=== PATIENT | female | born 1995 | race Caucasian/White ===

== ENCOUNTER 2024-10-03 12:37 | Emergency (ER) | payer BC, SELFPAY ==
--- NOTE | ~2024-10-03 | XR_ITS ---
EXAMINATION: XR chest 2V DATE: 10/03/2024 13:42 INDICATION: Cough and shortness of breath TECHNIQUE: PA and lateral views of the chest were obtained. COMPARISON: None FINDINGS: The lungs are clear with no focal airspace opacities, pulmonary edema, pleural effusion or pneumothor ax. The cardiomediastinal silhouette is normal. Mild thoracic spondylosis. IMPRESSION: 1. No acute cardiopulmonary disease. Reviewed, dictated and finalized at location A. [facility]
[2024-10-03 12:54] VITALS: BP 117/62; PULSE 84; RESP 18; TEMP 36.5; O2SAT 98
[2024-10-03 13:11] LABS: EDCOVIDSCREEN Negative (Negative); EDINFLUASCREEN Negative (Negative); EDINFLUBSCREEN Negative (Negative)
--- NOTE | 2024-10-03 13:20 | ED.URI ---
HPI - URI/Sore Throat General Chief Complaint: Upper Respiratory Infection Stated Complaint: coughing Time Seen by Provider: 10/03/24 13:20 Source: patient Mode of arrival: ambulatory Limitations: no limitations History of Present Illness HPI Narrative: 29-year-old female presented for complaint of cough and chest congestion following what she thinks was influenza last week. She states she has coughing over 1 week, but the other flu like symptoms have resolved. Endorses mild shortness of breath with exertion. Cough is productive of yellow sputum. Taking [id number] cough medicines for symptoms. Related Data Allergies Allergy/AdvReac Type Severity Reaction Status Date / Time No Known Allergies Allergy Verified 10/03/24 13:08 Review of Systems Review of Systems: CONSTITUTIONAL: Denies body aches, fever, chills, or sweats. EYES: Denies visual changes, redness, or discharge. ENT: Denies rhinorrhea, congestion, sore throat, or otalgia. CARDIOVASCULAR: Denies chest pain, palpitations, or edema. RESPIRATORY: Reports cough, sob, denies wheezing. GASTROINTESTINAL: Denies abdominal pain, nausea, vomiting, or diarrhea. MUSCULOSKELETAL: Denies back pain, joint pain, or myalgia. NEUROLOGIC: Denies headache, numbness, tingling, or weakness. PSYCH: Denies depression or anxiety. All systems reviewed & are unremarkable except as noted in HPI and below PMFSH Comments At time of signature, I have reviewed and agree with nursing past medical, surgical, social and family history unless otherwise noted. Please see nursing chart for further information. There is no relevant family history pertinent to the presenting complaint Exam Narrative: GENERAL: Well-appearing, in no acute distress. EYES: EOMI. No redness or drainage. Conjunctivae normal. ENT: Mucous membranes pink and moist. No rhinorrhea. TMs normal bilaterally. Throat normal. Uvula midline. NECK: Normal AROM. Supple. CHEST: No respiratory distress. Lungs clear to all quiñonez. Frequent harsh tipple tender cough. HEART: Regular rate and rhythm. No murmur appreciated. ABDOMEN: Soft, nontender, nondistended, normal active bowel sounds. SKIN: Warm, dry, no rash. Capillary refill normal. Normal skin turgor. NEURO: Alert and oriented x3. Gait steady. PSYCH: Normal affect. Course Course Emergency Course: Patient is aware of diagnosis, understands and agrees to treatment plan. Anticipatory guidance given. Patient agrees to follow-up as directed and is aware of reasons to seek care at the emergency department. Portions of this record may have been created with voice recognition software Level of Care: Express Care Visit Vital Signs Vital signs: Vital Signs Temperature 97.7 F 10/03/24 12:54 Pulse Rate 84 10/03/24 12:54 Respiratory Rate 18 10/03/24 12:54 Blood Pressure 117/62 10/03/24 12:54 Pulse Oximetry 98 10/03/24 12:54 Oxygen Delivery Room Air 10/03/24 12:54 Temperature 97.7 F 10/03/24 12:54 Pulse Rate 84 10/03/24 12:54 Respiratory Rate 18 10/03/24 12:54 Blood Pressure 117/62 10/03/24 12:54 Pulse Oximetry 98 10/03/24 12:54 Oxygen Delivery Room Air 10/03/24 12:54 MDM - URI/Sore Throat MDM Narrative Medical decision making narrative: Negative flu and COVID. Neg CXR. Discussed physical exam findings. Advised supportive measures and signs/symptoms to go to the ER. Pt is appropriate for outpt treatment and f/u. Differential Diagnosis Differential diagnosis: Likely upper respiratory infection, sinusitis, viral infection, bronchitis, influenza and pharyngitis Lab Data Labs: Lab Results 10/03/24 Range/Units 12:53 POC Influenza A Ag Negative (Negative) POC Influenza B Ag Negative (Negative) POC SARS CoV-2 Ag Negative (Negative) Imaging Data Radiologist's impression: Patient: Heidi Galvan : 1995 MR#: [id number] Age: 29 Acct:[id number] Loc: [facility] ADM Date: 10/03/24Attending Dr: Ordering Physician: Mirna Locke APRN Date of Service: 10/03/24 Procedure(s): XR chest 2V Accession Number(s): [id number] cc: Jeanie, Jo Deleon MD; Mirna Locke APRN~ EXAMINATION: XR chest 2V DATE: 10/03/2024 13:42 INDICATION: Cough and shortness of breath TECHNIQUE: PA and lateral views of the chest were obtained. COMPARISON: None FINDINGS: The lungs are clear with no focal airspace opacities, pulmonary edema, pleural effusion or pneumothorax. The cardiomediastinal silhouette is normal. Mild thoracic spondylosis. IMPRESSION: 1. No acute cardiopulmonary disease. Discharge Plan Discharge Clinical Impression: Bronchitis Patient Disposition: Home, Self-Care Condition: Stable Instructions: Antibiotic Form, Acute Bronchitis (ED) Additional Instructions: Flu and COVID negative. Acute bronchitis can be contagious because it is usually caused by infection with a virus or bacteria. It is usually for a few days but you can be contagious for up to one week. Avoid crowds until you do not have a fever and symptoms are improved Take medication as directed Recommendations: Flonase spray and Zyrtec (or Claritin/Pau) over the counter Cough syrup may cause drowsiness; avoid driving or take it at night time. Tylenol 1000mg every 8 hours as needed for pain Symptomatic treatment includes: rest, fluids, and increase humidity of the air at home. Follow up with your primary care provider as needed in 1 week Go to the ER for worsening symptoms or concerns Patient Language: Taiwanese Prescriptions: New benzonatate 200 mg capsule 200 mg PO TID PRN (Reason: cough) Qty: 20 0RF prednisone 50 mg tablet 50 mg PO DAILY Qty: 5 0RF Follow-up/Referrals: Jeanie,Jo Deleon MD [Primary Care Provider] -
--- OUTSIDE RECORDS SUMMARY | 2024-10-03 13:35 | XMS_ITS | Clinical Summary ---
Author Organization [facility] Address [address] [place] [address] Care Team Providers Care Principal Biostatistician Name Role Phone Jo Lagos MD Primary Care Provider [phone] Source Comments [facility],non-owned Affiliates and Associated Physician Practices is amultiple site organization consisting of ambulatory clinics and hospital sitesin [place], [place], [place] and [place]. This disclosure is being madepursuant to the Care Everywhere program and may not contain all information available regarding this patient. Last updated 18.[facility] Social History Tobacco Use Types Packs/Day Years Used Date Smoking Tobacco: Never Assessed Sex and Gender Information Value Date Recorded Sex Assigned at Not on file Gender Identity Not on file Sexual Orientation Not on file Plan of Treatment Health Maintenance Due Date Last Done Comments PAP SMEAR 1995 HIV SCREENING 2009 HEPATITIS C SCREENING 07/08/2012 DTAP/TDAP/TD VACCINES (1 - Tdap) 2013 HEPATITIS B VACCINE (1 of 3 - 19+ 3-dose series) 2013 COVID-19 VACCINE ( - 2023-2 5 season) 2024 INFLUENZA VACCINE (#1) 2024 DEPRESSION SCREENING 08/29/2024 ZOSTER VACCINE (1 of 2) 2044 HIB VACCINE Aged Out No longer eligi ble based on patient's age to complete this topic HPV VACCINE Aged Out No longer eligi ble based on patient's age to complete this topic MENINGOCOCCAL (Group B) VACCINE Aged Out No longer eligible based on patient's age to complete this topic MENINGOCOCCAL VACCINE Aged Out No faiza melissa eligible based on patient's age to complete this topic PNEUMOCOCCAL VACCINE Aged Out No long er eligible based on patient's age to complete this topic Care Teams Principal Biostatistician Relationship Specialty Start Date End Date Jo Lagos MD PCP - General Family Medicine 11/14/17
--- OUTSIDE RECORDS SUMMARY | 2024-10-03 13:35 | XMS_ITS | Referral Summary ---
Author Organization [facility] Address [address] [place] [address] Care Team Providers Care Phys Assistant Name Role Phone Jo Lagos MD Primary Care Provider [phone] Source Comments [facility],non-owned Affiliates and Associated Physician Practices is amultiple site organization consisting of ambulatory clinics and hospital sitesin [place], [place], [place]. This disclosure is being madepursuant to the Care Everywhere program and may not contain all information available regarding this patient. Last updated 18.[facility] Social History Tobacco Use Types Packs/Day Years Used Date Smoking Tobacco: Never Assessed Sex and Gender Information Value Date Recorded Sex Assigned at Not on file Gender Identity Not on file Sexual Orientation Not on file Plan of Treatment Not on file Care Teams Phys Assistant Relationship Specialty Start Date End Date Jo Lagos MD PCP - General Family Medicine 11/14/17
--- OUTSIDE RECORDS SUMMARY | 2024-10-03 13:35 | XMS_ITS | Data Portability ---
Author Organization [facility] Address [address] [place] [address] [place] [address] Assessment Encounter Date Assessment Date Assessment LastModified by Organization Details LastModified Time 06/18/2024 06/18/2024 Annual gynecological exam performed. Patient will come back in a year unless there are new symptoms. 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 Procedures None recorded. Surgeries None recorded. Imaging None recorded. Medication Orders None recorded. Patient TargetsNo targets recorded. Patient InstructionsNo instructions recorded. Reason for Referral None Reported. Results Created Date Observation Date Name Description Value Unit Range Abnormal Flag Note LastModifiedBy Organization Detail LastModifiedTime 06/18/20 24 06/18/2024 IMAGE GUIDE D PAP, REFLE X HPV IF ASCUS ONLY image guided Pap, reflex HPV ASCUS only SEE RESULT S BELOW abnormal CASE REPOR T: Cytol ogy Gynec ologi jay Repor t Case: [id number] Autho nicky oneil Provi donald: Clara jaimes, Lisa , ANP, ELECTRONICS REPAIR TECHNICIAN Colle cted: 06/18 1319 Order ing Locat ion: [place] Patho logsamson Recei christa: 06/19 0953 First Scree n: Valerie Doe Patho logis t: Zheng Worthington MD Speci men: Cyndy rodríguez Pap - Image d, Cervi x STATE MENT OF ADEQU ACY: Satis facto ry for evalu ation Trans forma tion zone compo nent prese nt ----- ----- ----- ----- ----- ----- ----- ----- ----- ----- ----- ----- ----- ----- ----- ----- ----- ---- FINAL DIAGN OSIS: Epith elial Cell Abnor malit y, Squam ous Cell: Low Grade Squam ous Intra epith elial Lesio n (LSIL ). Jessy alegria by Zheng Worthington MD on 06/25 at 1:58 PM ----- ----- ----- ----- ----- ----- ----- ----- ----- ----- ----- ----- ----- ----- ----- ----- ----- ---- COMME NT: This speci men was revie wed by a Cytot echno logis t and/o r Patho logis t (as indic ated in this repor t) after evalu ation using the Thinp rep Imagi ng Syste m. CLINI JAY INFOR MATIO N: Menst rual Statu s: LMP (if appli cable ): Clini jay Histo ry/Pr eviou s Pap: Type of Neopl zulay (if appli cable ): Signi fican t Clini jay Findi ngs: Other Histo ry: Hormo mane (if appli cable ): BRANT ADAMS FOLLO W-UP: Follo w up as warra nted, based on curre nt guide lines and indiv idual patie nt consi derat ions. Not Available [facility] (Lab) [address], [place], [address], 06/25/2024 15:01:35 06/18/20 24 06/18/2024 TRICH OMONA S VAGIN IVONE (RRNA ) trichomonas vaginalis ribosomal RNA (rrna) Negati ve negati ve Not Available [facility] (Lab) [address], [place], [address], 06/25/2024 15:01:35 06/18/20 24 06/18/2024 CT/GC ([place]) , THINP REP VIAL chlamydia trachomatis, PCR Negati ve negati ve Not Available [facility] (Lab) [address], [place], [address], 06/25/2024 15:01:36 06/18/20 24 06/18/2024 CT/GC ([place]) , THINP REP VIAL neisseria gonorrhoeae, PCR Negati ve negati ve Not Available [facility] (Lab) [address], [place], [address], 06/25/2024 15:01:36 07/16/20 24 07/16/2024 SURGI JAY PATHO LOGY surgical pathology SEE RESULT S BELOW CASE REPOR T: Surgi jay Patho logy Repor t Case: [id number] Autho nicky oneil Provi donald: Yordan Orosco MD Colle cted: 07/16 1702 Order ing Locat ion: [place] Patho logy Recei christa: 07/17 0522 Patho logis t: Asha Perry MD Speci men: Endoc ervix , ECC ----- ----- ----- ----- ----- ----- ----- ----- ----- ----- ----- ----- ----- ----- ----- ----- ----- ---- FINAL DIAGN OSIS: Endoc ervix , curet tage: -Frag ments of endoc ervic al tissu e, negat rafaela for dyspl zulay. Elect jasbir alegria by Asha Perry MD on 07/17 at 2:31 PM ----- ----- ----- ----- ----- ----- ----- ----- ----- ----- ----- ----- ----- ----- ----- ----- ----- ---- COMME NT: The previ ous Pap smear ([id number]) resul t is noted . CLINI JAY INFOR MATIO N: Squam ous intra epith elial lesio n MICRO SCOPI C DESCR IPTIO N: A micro scopi c exami natio n was perfo rmed. GROSS DESCR IPTIO N: A. Endoc ervix . The speci men is label ed with the patie nt's name, demog raphi cs and ECC . Recei christa in forma caitlyn is a 2.0 x 2.0 x 0.[address] of mucus and dark red tissu e. The entir e speci men is submi tted in one casse tte. Gross ed by Elsie roldan Not Available [facility] (Lab) [address], [place], [address], 07/17/2024 15:36:07 07/16/20 24 07/16/2024 pregn salas test, urine HCG negati ve Not Available [place] [address], [place], [address], 07/16/2024 14:39:07 Result Notes None recorded. 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) w/o abn findings;P treasuretice ID: 0001 Not Available [facility] 0 17:28:[address] Concept Active 2016 Encntr for general adult medical exam w/o abnormal findings;R ecorded Elsewhere: No Locatio n: [facility] rce: EHR Chroni c: N Practice ID: 0001 Billa ble Time: 02:30:00 PM Not Available [facility] 0 17:28:41 test negative 217411083 Active 2016 Encounter for test, result negative;R ecorded Elsewhere: No Locatio n: [facility] rce: EHR Chroni c: N Practice ID: 0001 Billa ble Time: 11:00:00 AM Not Available [facility] 0 17:28:41 Finding of regularit y of menstrual cycle Active 2016 Irregular bleeding;R ecorded Elsewhere: No Locatio n: [facility] rce: EHR Chroni c: N Practice ID: 0001 Billa ble Time: 11:00:00 AM Not Available [facility] 0 17:28:41 Contracep tive sheath status 926677394 Active 2016 Encounter for initial prescripti on of other contracept maribel;Recor ded Elsewhere: No Locatio n: [facility] rce: EHR Chroni c: N Practice ID: 0001 Billa ble Time: 02:30:00 PM Not Available [facility] 0 17:28:41 Problem Notes None recorded. Procedures Surgical History Date Name Laterality Status Provider Name and Address Organization Details Recorded Time 07/16/20 24 Colposcopy completed Mian Orosco MD [address] [place], [address], [place] [facility] 07/16/2024 15:02:47 06/18/20 24 Date of Last Pap Smear completed Teresa Gurrola [facility] 07/16/2024 14:34:01 08/29/19 20 Date of Last Colonoscopy completed [facility] 06/18/2024 11:31:26 08/29/19 12 Ankle arthroscopy/doris bea completed [facility] 06/18/2024 11:35:42 Imaging Results None recorded. Procedure Notes None recorded. Medical Equipment None Reported. Allergies No known drug allergies Medications Name Sig Start Date Stop Date Status Note LastModified by Organization Details LastModified Time Adderall 15 mg tablet take 1 tablet by oral route every day before breakfas t 06/18 completed [facility] ed Elsewher e: Yes Loca tion: [facility] odify By: saurav Hunter r DateTime : 08/16/20 17 02:30:00 PM Not Available Not Available Not Available trazodone 50 mg tablet TAKE 1 TABLET BY MOUTH EVERY DAY AT BEDTIME NEEDED active Not Available Not Available No t Available ondansetr on HCl 4 mg tablet 1 TABLET(S ) , ORAL ROUTE, EVERY 8 HOURS NEEDED FOR NAUSEA 06/18 completed Not Available Not Available Not Available Nexium 40 mg capsule,d elayed release take 1 capsule by oral route every day 06/18 completed [facility] ed Elsewher e: Yes Loca tion: [facility] odify By: saurav Eppste r DateTime : 08/16/20 17 02:30:00 PM Not Available Not Available Not Available spironola ctone 25 mg tablet take 1 tablet by oral route every day 01/12 completed [facility] ed Elsewher e: Yes Loca tion: [facility] odify By: vicenta Mccabeou nter DateTime : 12/03/19 16 01:00:00 PM Not Available Not Available Not Available Vitamin B-12 50 mcg tablet 06/18 completed Prescrib ed Elsewher e: Yes Loca tion: [facility] odify By: saurav Hunter r DateTime : 08/16/20 17 02:30:00 PM Not Available Not Available Not Available Metrogel Vaginal 0.75 % (37.5 mg/5 gram) insert 1 applicat orful by vaginal route every day at bedtime 01/12 completed Prescrib ed Elsewher e: No Locat ion: [facility] odify By: vicenta Harmon nter DateTime : 12/10/19 16 03:58:46 PM Not Available Not Available Not Available lorazepam 0.5 mg tablet TAKE 1 TABLET BY MOUTH AT BEDTIME NEEDED FOR INSOMNIA DIAGNOSI S G47.00 2023 active Not Available Not Available Not Avai lable methylphe nidate ER 18 mg tablet,ex tended release 24 hr TAKE 1 TABLET BY MOUTH EVERY DAY 06/18 completed Not Available Not Available Not Available drospiren one 3 mg-ethiny l estradiol 0.03 mg tablet TAKE 1 TABLET BY MOUTH EVERY DAY 06/18 completed Not Available Not Available Not Available Vitamin B-2 25 mg tablet 06/18 completed Prescrib ed Elsewher e: Yes Loca tion: [facility] odify By: saurav Hunter r DateTime : 08/16/20 17 02:30:00 PM Not Available Not Available Not Available nitrofura ntoin monohydra te/macroc rystals 100 mg capsule TAKE 1 CAPSULE BY MOUTH TWICE A DAY FOR 7 DAYS 06/18 completed Not Available Not Available Not Available Loryna (28) 3 mg-0.02 mg tablet take 1 tablet by oral route every day 06/18 completed Prescrib ed Elsewher e: Yes Loca tion: [facility] odify By: matt Hunter r DateTime : 12/03/19 16 01:00:00 PM Not Available Not Available Not Available Trokendi XR 25 mg capsule,e xtended release take 1 capsule by oral route every day 06/18 completed Prescrib ed Elsewher e: Yes Loca tion: Jey regulo [facility] M odify By: saurav davila DateTime : 08/16/20 02:30:00 PM Not Available Not Available Not Available Vitals Date Recorded Body height Body mass index (BMI) Body weight Systolic blood pressure Diastolic blood pressure Provider Name and Address Organization Details Last Updated DateTime 06/18/2024 170.18 cm 37.4 kg/m2 858151.1 4 g 114 mm[Hg] 76 mm[Hg] [facility] 11:28:04 Date Recorded Body height Body mass index (BMI) Body weight Systolic blood pressure Diastolic blood pressure Provider Name and Address Organization Details Last Updated DateTime 07/16/2024 170.18 cm 37 kg/m2 717529.8 g 118 mm[Hg] 76 mm[Hg] Teresa Galileo [facility] 14:33:50 Social History Question Answer Notes LastModified by Organizat ion Details LastModified Time Tobacco Smoking Status Never Smoker [facility] 06/18/2024 11:33:28 Do You Have An Advance Directive? No [email or web address] Information n ot available 06/18/2024 What Is Your Level Of Alcohol Consumption? Occasional [email or web address] Information not available 06/18/2024 Are You Blind Or Do You Have Difficulty Seeing? No Information n ot available 06/18/2024 What Is Your Level Of Caffeine Consumption? Occasional [email or web address] Information not available 06/18/2024 In The 14 Days Before Symptom Onset, Have You Had Close Contact With A Laboratory-confirm ed COVID-19 While That Case Was Ill? No [email or web address] Information n ot available 06/18/2024 In The 14 Days Before Symptom Onset, Have You Had Close Contact With A Person Who Is Under Investigation For COVID-19 While That Person Was Ill? No [email or web address] Information not available 06/18/2024 Have You Been To An Area Known To Be High Risk For COVID-19? No [email or web address] Information not available 06/18/2024 Are You Currently Employed? Yes [email or web address] Information not available 06/18/2024 Are You Deaf Or Do You Have Serious Difficulty Hearing? No [email or web address] Information not available 06/18/2024 What Type Of Diet Are You Following? REGULAR [email or web address] Information n ot available 06/18/2024 What Is The Highest Grade Or Level Of School You Have Completed Or The Highest Degree You Have Received? [id number] [email or web address] Information not available 06/18/2024 What Is Your Occupation? [place] [email or web address] Information not available 06/18/2024 Are There Any Guns Present In Your Home? No [email or web address] Information not available 06/18/2024 Do You Use Your Seat Belt Or Car Seat Routinely? Yes [email or web address] Information not available 06/18/2024 Are You Sexually Active? Yes [email or web address] Information not available 06/18/2024 Do You Have Smoke And Carbon Monoxide Detectors In Your Home? Yes [email or web address] Information not available 06/18/2024 Do You Feel Stressed (tense, Restless, Nervous, Or Anxious, Or Unable To Sleep At Night)? [id number] Information not available 06/18/2024 Do You Use Any Illicit Or Recreational Drugs? No [email or web address] Information not available 06/18/2024 Do You Use Sunscreen Routinely? Yes [email or web address] Information not available 06/18/2024 Has Tobacco Cessation Counseling Been Provided? Yes Information not available 06/18/2024 On What Date Was Tobacco Cessation Counseling Provided? 06/18/2024 [email or web address] Information not available 06/18/2024 Do You Or Have You Ever Used Any Other Forms Of Tobacco Or Nicotine? No Information not available 06/18/2024 Sex: Female Functional Status Question Answer Note LastModified by Organizat ion Details LastModified Time Do you have difficulty walking or climbing stairs? No [email or web address] Information not available 06/18/2024 Are you able to walk? YESWOREST [email or web address] Information not available 06/18/2024 Are you able to care for yourself? Yes [email or web address] Information not available 06/18/2024 Do you have difficulty dressing or bathing? No [email or web address] Information not available 06/18/2024 What is your exercise level? Occasional [email or web address] Information not available 06/18/2024 Mental Status None recorded. Family History Relationship Description Onset Age of this Age Resolved Age Notes LastModified by Organization Details LastModified Time Paternal Grandfather Diabetes mellitus [email or web address] Not available 2023 11:32:14 Father Hypertensive disorder [email or web address] Not available 2023 11:32:30 Paternal Grandmother Hypertensive disorder Not available 2023 11:32:30 Notes:Mother: psychiatric di sease Paternal aunt: Thyroid disease, breast Medical History Condition Response Allergies (Food, seasonal, environmental ) N Other N Breast Cancer N Drug/Latex Allergies/Reactions N Blood Transfusion N Dermatologic Disorders N Lung Disease N Defects or Inherited Disease N Breast Problem N Gestational Diabetes N Hematologic disorders N Anesthesia Complications N History of STI N Deep Vein Thrombosis N Polycystic ovary syndrome Y Anxiety Disorder N Autoimmune disease N Arthritis N Infertility N Polyps N Acid Reflux (GERD) N History of abnormal pap Y Cancer N Stroke N Varicosities N Neurologic/Epilepsy N Endometriosis N High Cholesterol N Headaches N Fibromyalgia N Kidney Disease N Heart Problems N Kidney or Bladder Problems N Thyroid Problems N GI Problems N Eating Disorder N Anemia N Art (IVF or FET) N Psychiatric Illness N Ovarian Cancer N Diabetes N Pulmonary (TB, Asthma) N Hepatitis/Liver Disease N No Past Medical History N Eczema N Urinary Tract Infection N Abuse/Domestic Violence N Asthma N Trauma/Violence N Depression/ depression N Heart Disease N Pre-Eclampsia N Hypertension N Osteoporosis N Thrombophilias N Gynecological History Statement/Question Response Abnormal Pap Y Flow Moderate Date of LMP 06/29/2024 On BCP's at Conception? N Was last menstrual period normal Y STIs/STDs N HPV Vaccine Y Duration of Flow (days) 5 Current Control Method None Are cycles usually normal Y Date of Last Colonoscopy 08/29/2019 Frequency of Cycle (Q days) Sexually Active? Y Menses Monthly N Age of first menstrual cycle 11 Date of Last Pap Smear 06/18/2024 Sexual Problems? N LMP Definite Obstetrics History GPAL:G 0 P 0 0 0 0 Past Encounters Encounter ID Performer Location Encounter Start Date Encounter Closed Date Diagnosis/Indication Diagnosis SNOMED-CT Code Diagnosis ICD10 Code Diagnosis Note [id number] LISA WOLF, JENS [facility] [address] [address] 06/18/2024 11:08:19 06/18/2024 12:21:49 Gynecologic examination 72888222 Z01.419 Annual gynecologi jay exam performed. Patient will come back in a year unless there are new symptoms. Suggest Calcium with Vitamin D if not eating in diet. Patient advised to get annual flu shot. Recommend yearly physicals and perform monthly breast exams. Genetic testing is available for patients with family history of cancer. Engage in safe sexual practices, use condoms. Encouraged to have daily exercise. Avoid tobacco and illicit drugs, moderation of alcohol. If BMI greater than 25 dietary consult advised. If you have any questions please call or email. mammogram- n/a colon cancer screening - n/a DEXA scan- n/a Pap smear- pap w/HPV reflex collected laboratory evaluation - PCP STI testing - done today per pt request Contracept ion care management 062439604 Z30.9 Effectiven ess, correct use, advantages /disadvant ages, common side effects, serious complicati ons, contra-ind ications/p recautions and return to fertility were reviewed for the following: Combined oral contracept rafaela (pills/pat ch/ring), Progestero ne-only pills, Depo Provera injection, Nexplanon implant, Kyleena IUD, Mirena IUD, Paragard IUD, Condoms, Diaphragm, spermicide s, Permanent sterilizat ion (tubal ligation & Essure), Vasectomy for partner. Patient interested in Nexplanon. Patient to RTO when on period for insertion. Patient to call with any questions or concerns. Venereal d isease screening 634426113 Z11.3 Patient requested testing for GC/CT today.Disc ussed the various types of STDs, related symptoms and the potential consequenc es (including effects on fertility) of STD infections . Reviewed ways to limit exposure and prevention techniques . [id number] Mina Orosco MD [facility] [address] [address] 07/16/2024 14:25:41 07/16/2024 15:05:29 Screening procedure 32376702 Z13.9 Abnormal c ervical Papanicolaou smear 634444369 R87.619 colposcopy performed without complicati ons. It was satisfacto ry, normal, ECC was performed. Health Concerns Section Related Observation LastModified by Organization Detai ls LastModified Time None Recorded Concern Status LastModified by Organization Details LastModified Time None Recorded Advance Directives Directive N: Payers Encounter Date Sequence Insurance Name Policy Number Policy Puga Covered Member ID Puga Member ID Guarantor Name 06/18/2024 1 [employer] [place] [id number] 1 Heidi Galvan [id number] 07/16/2024 1 [employer] [id number] 1 Heidi Galvan [id number] Notes Date Note Type Note Provider Name and Address Organization Details Recorded Time 06/18/2024 text/html Annual GYNReport ed bypatient.History: no gynecologic complaints Menstrual cycle:Normal menses Urinary symptoms:No hematuria; No incontinence Vulva:No genital lesion Vagina:Normal vaginal discharge Breast:No breast pain; No breast lump; No nipple discharge Current Contraception:Cond oms Sexual complaints:No sexual complaints; No pain during intercourse; Normal libido Menopausal Symptoms:No menopausal symptoms; Normal vaginal lubrication Psychological symptoms:No depression; No anxiety; No PMDD Preventive measures:Encourage self breast examination; Encourage regular exercise; Encourage no tobacco use; Encourage regular mammograms starting age 40 Patient presents for annual well woman exam. Patient denies concerns today. Patient wants to discuss possible control options. Patient stopped CLAUDIA pills three months ago, pt often forgot to take pills d/t traveling for work. Patient has hx of PCOS.Pt requests STI testing today. LISA WOLF NP [address], [place], [address], [facility] 06/18/2024 12:18:10 07/16/2024 text/html 29-year-old fema domitila who presents for colposcopic examination for a LGSIL Pap. The procedure was explained to the patient in detail. She understands the procedure. She understands the risks, benefits, and alternatives. She has completed the informed consent process and is ready to proceed. Mian Orosco MD [address], [place], [address], [facility] 07/16/2024 15:04:35 OBGyn Episode No OBEpisode recorded.
--- OUTSIDE RECORDS SUMMARY | 2024-10-03 13:35 | XMS_ITS | Patient Health Summary ---
Author Organization [facility] Address [address] [place] [address] Care Team Providers Care Wage Conciliator Name Role Phone Jo Lagos MD Primary Care Provider [phone] Note from [facility],non-owned Affiliates and Associated Physician Practices is amultiple site organization consisting of ambulatory clinics and hospital sitesin [place], [place], [place] and [place]. This disclosure is being madepursuant to the Care Everywhere program and may not contain all information available regarding this patient. Last updated 18.[facility] Social History Tobacco Use Types Packs/Day Years Used Date Smoking Tobacco: Never Assessed Sex and Gender Information Value Date Recorded Sex Assigned at Not on file Gender Identity Not on file Sexual Orientation Not on file Care Teams Wage Conciliator Relationship Specialty Start Date End Date Jo Lagos MD PCP - General Family Medicine 11/14/17
--- OUTSIDE RECORDS SUMMARY | 2024-10-03 13:36 | XMS_ITS | Referral Summary ---
Author Organization [facility] Address [address] [place] [id number] Care Team Providers Care Irish Moss Gatherer Name Role Phone Jo Ayala MD Primary Care Provider Allergies No known active allergies Medications SARAI, 28, 3-0.02 mg per tablet 05/01/2017 Active traZODone (DESYREL) 150 mg tablet Take 150 mg by mouth nightly. Active esomeprazole DR (NexIUM) 40 mg capsule Take 40 mg by mouth daily before breakfast. Active dicyclomine (BENTYL) 10 mg capsuleIndicatio ns:Irritable Bowel Syndrome Take 10 mg by mouth 4 (four) times a day before meals and nightly. Active metFORMIN (GLUCOPHAGE) 500 mg tablet TK 1 T PO D 0 02/22/2018 Active riboflavin (Vitamin B-2) 100 mg tabletIndication s:Riboflavin Deficiency Take 1 tablet (100 mg total) by mouth daily after breakfast. 120 tablet 5 04/12/2018 Active topiramate 100 mg capsule,sprinkle ,ER 24hr Take 100 mg by mouth daily 30 each 04/17/2019 Active Active Problems Problem Noted Date Diagnosed Date Obesity (BMI 35.0-39.9 without comorbidity) 02/2017 Assessment & Plan (08/04/2017 6:56 AM FREIGHT DELIVERY DRIVER): Obesity is improving with lifestyle modifications. Discussed the patient's BMI. The BMI is above average; BMI management plan is completed. General weight loss/lifestyle modification strategies discussed (elicit support from others; identify saboteurs; non-food rewards, etc). Behavioral treatment: stress management. Diet interventions: diet diary indefinitely, moderate (500 kCal/d) deficit diet and referral to dietitian for guidance in these changes. Informal exercise measures discussed, e.g. taking stairs instead of elevator. Regular aerobic exercise program discussed. - work up for [place] syndrome - negative Normal 24 hour Urine cortisol levels and normal repose to low dose dexamethasone suppression test - possible underlying partial PCOS - explained that pt. Needs to work on changing her lifestyle habits - advised to be more physically activity - advise to join group classes, local gym or [employer] - advised to do resistance training - also advised to do food diary and see cotton bag clipper, pt needs to avoid binge eating - follow up in one year to reevaluate Chronic nonintractable headache 08/04/2017 Assessment & Plan (08/04/2017 6:56 AM FREIGHT DELIVERY DRIVER): Referral to neurologist done PCOS (polycystic ovarian syndrome) 08/04/2017 Assessment & Plan (08/04/2017 6:58 AM FREIGHT DELIVERY DRIVER): On OCP's as per ASL INTERPRETER No current menstrual problems Acne and facial hair very minimal Advised local measures like waxing or threading for facial or chest hair Advised to work on heathy lifestyle habits , as dicussed above Social History Tobacco Use Types Packs/Day Years Used Date Smoking Tobacco: Never Smokeless Tobacco: Never Alcohol Use Standard Drinks/Week Comments Yes 0 (1 standard drink = 0.6 oz pur e alcohol) Personal Safety Answer Date Recorded Getting School Help Needed Not on file 11/11 Comments Unknown Sex and Gender Information Value Date Recorded Sex Assigned at Not on file Legal Sex Female 11:09 PM FREIGHT DELIVERY DRIVER Gender Identity Not on file Sexual Orientation Not on file Last Filed Vital Signs Vital Sign Reading Time Taken Comments Blood Pressure 112/80 04/12/2018 2:46 PM CDT Pulse 60 04/12/2018 2:46 PM CDT Temperature - - Respiratory Rate 14 04/12/2018 2:46 PM CDT Oxygen Saturation - - Inhaled Oxygen Concentration - - Weight 109.5 kg (241 lb 6.5 oz) 04/12/2018 2:46 PM CDT Height 170.2 cm (5' 7 ) 04/12/2018 2:46 PM CDT Body Mass Index 37.81 04/12/2018 2:46 PM CDT Plan of Treatment Not on file Insurance [facility] TRADITIONAL Care Teams Irish Moss Gatherer Relationship Specialty Start Date End Date Jo Ayala MD [address] [place] [address] PCP - General Family Medicine 06/20/17
--- OUTSIDE RECORDS SUMMARY | 2024-10-03 13:36 | XMS_ITS | Clinical Summary ---
Author Organization [facility] Address [address] [place] [id number] Care Team Providers Care Rural Mail Carrier Name Role Phone Jo Ayala MD Primary [...] 02/2017 Assessment & Plan (08/04/2017 6:56 AM PAPER CUTTER OPERATOR): Obesity is improving with lifestyle modifications. Discussed [...] exercise program discussed. - work up for [place] syndrome - negative Normal 24 hour Urine [...] advised to do food diary and see tactical air defense controller, pt needs to avoid binge eating - follow up in one year to reevaluate Chronic nonintractable headache 08/04/2017 Assessment & Plan (08/04/2017 6:56 AM PAPER CUTTER OPERATOR): Referral to neurologist done PCOS (polycystic ovarian syndrome) 08/04/2017 Assessment & Plan (08/04/2017 6:58 AM PAPER CUTTER OPERATOR): On OCP's as per DOOR PANELER No current menstrual problems Acne and facial hair very minimal Advised local measures like waxing or threading for facial or chest hair Advised to work on heathy lifestyle habits , as dicussed above Surgical History Surgery Date Site/Laterality Comments KNEE SURGERY left acl ANKLE SURGERY right COLONOSCOPY 2014 Medical History Medical History Date Comments PCOS (polycystic ovarian syndrome) IBS (irritable bowel syndrome) GERD (gastroesophageal reflux disease) Family History Medical History Relation Name Comments ADD / ADHD Brother GAYATRI disease Brother GAYATRI disease Father Mental illness Mother Relation Name Status Comments Brother Father Mother Social History Tobacco Use Types Packs/Day Years [...] on file Legal Sex Female 11:09 PM PAPER CUTTER OPERATOR Gender Identity Not on file Sexual Orientation Not on file Obstetrics History Last Filed Vital Signs Vital Sign Reading [...] Plan of Treatment Not on file Insurance [facility] TRADITIONAL Care Teams Rural Mail Carrier Relationship Specialty Start Date End Date Jo Ayala MD [facility] [place] [address] PCP - General Family Medicine 06/20/17
--- OUTSIDE RECORDS SUMMARY | 2024-10-03 13:37 | XMS_ITS | Encounter Summary ---
Author Organization [facility] Address [facility] [place] [address] Care Team Providers Care Pediatric Nurse Name Role Phone Jo Ayala MD Primary Care Provider + Encounter Details Date Type Department Care Team (Late st Contact Info) Description 11/26/2013 Abstract [facility] CONVERSION [address] [place] [address] , Generic Conversion, Social History Tobacco Use Types Packs/Day Years Used Date Smoking Tobacco: Never Assessed Comments Unknown Sex and Gender Information Value Date Recorded Sex Assigned at Not on file Legal Sex Female 7:32 PM CDT Gender Identity Not on file Sexual Orientation Not on file documented as of this encounter Plan of Treatment Not on file documented as of this encounter Visit Diagnoses Not on filedocumented in this encounter Care Teams Pediatric Nurse Relationship Specialty Start Date End Date Jo Ayala MD [address] [place] [address] PCP - General FAMILY PRACTICE 03/05/21 documented as of this encounter
--- OUTSIDE RECORDS SUMMARY | 2024-10-03 13:37 | XMS_ITS | Encounter Summary ---
Author Organization [facility] Address [facility] [place] [address] Care Team Providers Care Machine Hoop Maker Helper Name Role Phone Jo Ayala MD Primary Care Provider + Encounter Details Date Type Department Care Team (Late st Contact Info) Description 02/23/2017 Abstract [facility] CON[facility] [address] [place] [address] , Generic Conversion, Social History Tobacco Use [...] on filedocumented in this encounter Care Teams Machine Hoop Maker Helper Relationship Specialty Start Date End Date Jo Ayala MD [address] [place] [address] PCP - General FAMILY PRACTICE 03/05/21 documented as of this encounter
--- OUTSIDE RECORDS SUMMARY | 2024-10-03 13:37 | XMS_ITS | Encounter Summary ---
Author Organization [facility] Address [facility] [place] [address] Care Team Providers Care Pet Care Worker Name Role Phone Jo Ayala MD Primary Care Provider + Encounter Details Date Type Department Care Team (Late st Contact Info) Description 12/26/2012 Abstract [facility] CONVERSION [address] [place] [address] , Generic Conversion, Social History Tobacco Use [...] on filedocumented in this encounter Care Teams Pet Care Worker Relationship Specialty Start Date End Date Jo Ayala MD [address] [place] [address] PCP - General FAMILY PRACTICE 03/05/21 documented as of this encounter
--- OUTSIDE RECORDS SUMMARY | 2024-10-03 13:37 | XMS_ITS | Clinical Summary ---
Author Organization [facility] Address [address] [place] [address] Care Team Providers Care Delivery Engineer Name Role Phone Jo Ayala MD Primary Care Provider + Allergies No known active allergies Medications dicyclomine 10 MG capsule Take 10 mg by mouth 4 (four) times daily. Active drospirenone-eth inyl estradiol 3-0.03 MG tablet 05/02/2021 Ac tive esomeprazole 40 MG capsule Take 40 mg by mouth daily. Active metFORMIN ER 500 MG 24 hr tablet 02/10/2021 Act rafaela CONCERTA 18 MG tablet 09/30/2020 Active traZODone 150 MG tablet Take 150 mg by mouth daily. Active albuterol sulfate HFA (PROAIR HFA) 108 (90 Base) MCG/ACT inhalerIndicatio ns:Viral URI with cough Inhale 2 puffs into the lungs every 6 (six) hours as needed for Wheezing. 18 g 07/21/2021 Active Active Problems Problem Noted Date Diagnosed Date Cervicalgia 06/11/2022 Impingement syndrome of left shoulder 06/11/2022 Low back pain 03/12/2021 Social History Tobacco Use Types Packs/Day Years Used Date Smoking Tobacco: Never Smokeless Tobacco: Never Alcohol Use Standard Drinks/Week Comments Yes 0 (1 standard drink = 0.6 oz pur e alcohol) ocass Comments No Sex and Gender Information Value Date Recorded Sex Assigned at Not on file Legal Sex Female 7:32 PM CDT Gender Identity Not on file Sexual Orientation Not on file Last Filed Vital Signs Vital Sign Reading Time Taken Comments Blood Pressure 140/62 05/07/2022 6:33 PM CDT Pulse 72 05/07/2022 6:33 PM CDT Temperature 36.9 ??C (98.4 ??F) 05/07/2022 4:10 PM CD T Respiratory Rate 16 05/07/2022 6:33 PM CDT Oxygen Saturation 99% 05/07/2022 6:33 PM CDT Inhaled Oxygen Concentration - - Weight 111.1 kg (245 lb) 05/07/2022 4:10 PM CDT Height 170.2 cm (5' 7 ) 05/07/2022 4:10 PM CDT Body Mass Index 38.37 05/07/2022 4:10 PM CDT Plan of Treatment Health Maintenance Due Date Last Done Comments Cervical Cancer Screening Pa p Smear (Age 30 to 64) Every 3 Years 1994 Annual Physical 1997 Hepatitis C 2012 DTaP, Tdap and Td Vaccines ( 1 - Tdap) 2013 Hepatitis B Vaccines (1 of 3 - 19+ 3-dose series) 2013 COVID-19 Vaccine (2023-2 5 season) 2024 10/07/2020, 09/09/2020 Influenza Adult (#1) 2024 Cervical Cancer Screening Pa p with HPV Testing (Age 30 to 64) Every 5 Years 2024 Cervical Cancer Screening wi th HPV 2024 HPV Vaccines Aged Out No longer eligi ble based on patient's age to complete this topic Meningococcal B Vaccine Aged Out No l onger eligible based on patient's age to complete this topic Meningococcal Vaccine Aged Out No faiza melissa eligible based on patient's age to complete this topic Pneumococcal Vaccine: Pediatrics (0 to 5 Years) and At-Risk Patients (6 to 64 Years) Aged Out No longer eligible b ased on patient's age to complete this topic RSV Immunizations Under 20 Months Aged Out No longer eligible b ased on patient's age to complete this topic Insurance [facility] [facility] [place] Care Teams Delivery Engineer Relationship Specialty Start Date End Date Jo Ayala MD [address] [place] [address] PCP - General FAMILY PRACTICE 03/05/21
== END 2024-10-03 14:06 | disposition home or self-care (01) ==
PROVIDERS: Emergency Provider Nurse Practitioner Family; PCP Family Medicine
DX: J40 Bronchitis, not specified as acute or chronic (principal); Z20.822 Contact with and (suspected) exposure to COVID-19
CPT/HCPCS: 71046; 87426; 87804; 99213; G0463

== ENCOUNTER 2025-08-25 12:27 | Emergency (ER) | payer BC, SELFPAY ==
--- NOTE | ~2025-08-25 | XR_ITS ---
Examination: XR hand RT min 3V, XR wrist RT min 3V Clinical History: hand pain carpals proximal metacarpals/injury yesterday Comparison: None Technique: 4 views right wrist, 3 views right hand Findings/impression: Right wrist: 1. No fracture or dislocation right wrist. 2. Tiny bony fragment along dorsal soft tissues at carpal-metacarpal joints on lateral projection, small fracture suspected. Donor site unclear. Right hand: 1. Tiny bony fragment along dorsal soft tissues at carpal-metacarpal joints on lateral projection, small fracture suspected. Donor site unclear. 2. No other acute abnormality identified. Reviewed, dictated and finalized at location R. CLERK
--- OUTSIDE RECORDS SUMMARY | 2025-08-25 12:28 | XMS_ITS | Clinical Summary ---
Author Organization [facility] Address [address] [facility] [place] [address] Care Team Providers Care Manager Property Name Role Phone Jo Lagos MD Primary Care Provider [phone] Source Comments [facility],non-owned Affiliates and Associated Physician Practices is amultiple site organization consisting of ambulatory clinics and hospital sitesin [place], [place], [place] and [place]. This disclosure is being madepursuant to the Care Everywhere program and may not contain all information available regarding this patient. Last updated 18.[facility] [employer] Social History Tobacco Use Types Packs/Day Years Used Date Smoking Tobacco: Never Assessed Comments Unknown Sex and Gender Information Value Date Recorded Sex Assigned at Not on file Legal Sex Female 10:39 AM CDT Gender Identity Not on file Sexual Orientation Not on file Plan of Treatment Health Maintenance Due Date Last Done Comments HIV SCREENING 2009 HEPATITIS C SCREENING 07/08/2012 DTAP/TDAP/TD VACCINES (1 - Tdap) 2013 HEPATITIS B VACCINE (1 of 3 - 19+ 3-dose series) 2013 HPV VACCINE (1 - 3-dose SCDM series) 2021 DEPRESSION SCREENING 08/29/2024 COVID-19 VACCINE (1 - 2024-2 6 season) 2025 INFLUENZA VACCINE (#1) 2025 ZOSTER VACCINE (1 of 2) 2044 HIB VACCINE Aged Out No longer eligi ble based on patient's age to complete this topic MENINGOCOCCAL (Group B) VACC INE SHARED DECISION-MAKING Aged Out No longer eligibl e based on patient's age to complete this topic MENINGOCOCCAL GROUPS A/C/Y/W VACCINE Aged Out No longer eligible b ased on patient's age to complete this topic PNEUMOCOCCAL VACCINE Aged Out No long er eligible based on patient's age to complete this topic Care Teams Manager Property Relationship Specialty Start Date End Date Jo Lagos MD PCP - General Family Medicine 11/14/17
--- OUTSIDE RECORDS SUMMARY | 2025-08-25 12:28 | XMS_ITS | Clinical Summary ---
Author Organization [address] Address [address] [place] [phone] Care Team Providers Care Manager Clinical Name Role Phone Jo Ayala MD Primary Care Provider Allergies No known active allergies Medications SARAI 28, 3-0.02 mg per tablet 05/01/2017 Active [...] 02/2017 Assessment & Plan (08/04/2017 6:56 AM OXIDE FURNACE TENDER): Obesity is improving with lifestyle modifications. Discussed [...] exercise program discussed. - work up for [place] syndrome - negative Normal 24 hour Urine [...] advised to do food diary and see assembler metal furniture, pt needs to avoid binge eating - follow up in one year to reevaluate Chronic nonintractable headache 08/04/2017 Assessment & Plan (08/04/2017 6:56 AM OXIDE FURNACE TENDER): Referral to neurologist done PCOS (polycystic ovarian syndrome) 08/04/2017 Assessment & Plan (08/04/2017 6:58 AM OXIDE FURNACE TENDER): On OCP's as per PHYSICS AND ASTRONOMY PROFESSOR No current menstrual problems Acne and facial [...] on file Legal Sex Female 11:09 PM OXIDE FURNACE TENDER Gender Identity Not on file Sexual Orientation [...] 2:46 PM CDT Height 170.2 cm (5' 7) 04/12/2018 2:46 PM CDT Body Mass Index 37.81 04/12/2018 2:46 PM CDT Plan of Treatment Not on file Insurance [facility] TRADITIONAL Care Teams Manager Clinical Relationship Specialty Start Date End Date Jo Ayala MD [address], [place] [id number] PCP - General Family Medicine 06/20/17
--- OUTSIDE RECORDS SUMMARY | 2025-08-25 12:31 | XMS_ITS | Encounter Summary ---
Author Organization [facility] Address [address] [place] [address] Care Team Providers Care Plant Puller Name Role Phone Jo Ayala MD Primary Care Provider + Encounter Details Date Type Department Care Team (Late st Contact Info) Description 02/23/2017 Abstract [facility] CONVERSION [address] [place] [address] , Generic ConversionMD Social History Tobacco Use Types Packs/Day Years Used Date Smoking Tobacco: Never Assessed Comments Unknown Sex and Gender Information Value Date Recorded Sex Assigned at Female 03/14/2025 11:24 AM CDT Legal Sex Female 7:32 PM CDT Gender Identity Not on file Sexual Orientation Not on file documented as of this encounter Plan of Treatment Not on file documented as of this encounter Visit Diagnoses Not on filedocumented in this encounter Care Teams Plant Puller Relationship Specialty Start Date End Date Jo Ayala MD [address] [place] [id number] PCP - General FAMILY PRACTICE 03/05/21 documented as of this encounter
--- OUTSIDE RECORDS SUMMARY | 2025-08-25 12:31 | XMS_ITS | Clinical Summary ---
Author Organization [facility] Address [address] [place] [address] Care Team Providers Care Welding Lead Burner Name Role Phone Jo Ayala MD Primary [...] Active Problems Problem Noted Date Diagnosed Date Left knee pain 03/29/2025 Cervicalgia 06/11/2022 Impingement syndrome of left shoulder [...] 72 05/07/2022 6:33 PM CDT Temperature 36.9 C (98.4 F) 05/07/2022 4:10 PM CDT Respiratory Rate 16 05/07/2022 6:33 PM CDT Oxygen Saturation 99% 05/07/2022 6:33 PM CDT Inhaled Oxygen Concentration - - Weight 111.1 kg (245 lb) 05/07/2022 4:10 PM CDT Height 170.2 cm (5' 7) 05/07/2022 4:10 PM CDT Body Mass Index [...] 3 - 19+ 3-dose series) 2013 HPV Vaccines (1 - 3-dose SCD M series) 2021 Cervical Cancer Screening Pa p with HPV Testing (Age 30 to 64) Every 5 Years 2024 Cervical Cancer Screening wi th HPV 2024 COVID-19 Vaccine (3 - 2024-2 6 season) 2025 10/07/2020, 09/09/2020 Influenza Adult (#1) 2025 Hepatitis A Vaccines Aged Out No long er eligible based on patient's age to complete this topic Meningococcal B Vaccine Aged Out No l onger eligible based on patient's age to complete this topic Meningococcal Vaccine Aged Out No faiza melissa eligible based on patient's age to complete this topic Pneumococcal Vaccine: Pediatrics (0 to 5 Years) and At-Risk Patients (6 to 49 Years) Aged Out No longer eligible b ased on patient's age to complete this topic RSV Immunizations Under 20 Months Aged Out No longer eligible b ased on patient's age to complete this topic Insurance [facility] Care Teams Welding Lead Burner Relationship Specialty Start Date End Date Jo Ayala MD [facility] [place] [address] PCP - General FAMILY PRACTICE 03/05/21
--- OUTSIDE RECORDS SUMMARY | 2025-08-25 12:31 | XMS_ITS | Encounter Summary ---
Author Organization [facility] Address [address] [place] [address] Care Team Providers Care Academic Intern Name Role Phone Jo Ayala MD Primary Care Provider + Encounter Details Date Type Department Care Team (Late st Contact Info) Description 11/26/2013 Abstract [facility] CONVERSION [address] [place] [address] , Generic ConversionMD Social History Tobacco Use [...] on filedocumented in this encounter Care Teams Academic Intern Relationship Specialty Start Date End Date Jo Ayala MD [address] [place] [id number] PCP - General FAMILY PRACTICE 03/05/21 documented as of this encounter
--- OUTSIDE RECORDS SUMMARY | 2025-08-25 12:31 | XMS_ITS | Encounter Summary ---
Author Organization [facility] Address [address] [place] [address] Care Team Providers Care Messenger Copy Name Role Phone Jo Ayala MD Primary Care Provider + Encounter Details Date Type Department Care Team (Late st Contact Info) Description 12/26/2012 Abstract [facility] CONVERSION [address] [place] [address] , Generic ConversionMD Social History Tobacco Use [...] on filedocumented in this encounter Care Teams Messenger Copy Relationship Specialty Start Date End Date Jo Ayala MD [address] [place] [id number] PCP - General FAMILY PRACTICE 03/05/21 documented as of this encounter
[2025-08-25 12:34] VITALS: BP 104/78; PULSE 72; RESP 18; TEMP 36.6; O2SAT 99
--- NOTE | 2025-08-25 13:32 | ED.EXTPRO ---
HPI - Extremity Problem General Chief complaint: Extremity Problem,Nontraumatic Stated complaint: RT Hand Pain History of Present Illness HPI Narrative: Chief Complaint Right hand pain following a fall from a mechanical bull. Patient Summary Heidi Almodovar presents with right hand pain due to a fall from a mechanical bull three days ago, with a small chip fracture identified on X-ray. History of Present Illness Heidi Almodovar fell off a mechanical bull three days ago, resulting in immediate swelling and persistent pain in her right hand. The swelling has improved, but she continues to experience significant pain, especially when grasping objects or driving. An X-ray revealed a bone fragment, indicating a small chip fracture, though the specific site of origin is unclear. She reports being right-handed and expressed concern about her ability to perform daily tasks. Social History - Lives in [place]. - Typically receives medical care in [place]. - Right-handed. Family History Not discussed. Review of Systems - Positive for right hand pain and swelling. - Reports not having numbness or tingling in fingers. Vitals and Physical Exam findings Not available. Related Data Home Medications ?Medication ?Instructions ?Recorded ?Confirmed ?Last Taken ?Type No Home Medications 08/25/25 08/25/25 Unknown History Allergies Allergy/AdvReac Type Severity Reaction Status Date / Time No Known Allergies Allergy Verified 08/25/25 12:30 Review of Systems Review of Systems: All systems reviewed & are unremarkable except as noted in HPI and below Eyes: Eyes: Reports as per HPI ENT: Reports as per HPI Cardiovascular: Cardiovascular: Reports as per HPI Respiratory: Respiratory: Reports as per HPI Genitourinary: Genitourinary: Reports as per HPI Musculoskeletal: Musculoskeletal: Reports as per HPI Integumentary/Breasts: Skin/Breast: Reports as per HPI Neurologic: Reports as per HPI Psychiatric: Psychiatric: Reports as per HPI Endocrine: Endocrine: Reports as per HPI Hematologic/Lymphatic: Hematologic/Lymphatic: Reports as per HPI Allergic/Immunologic: Allergic/Immunologic: Reports as per HPI Exam Const: General: cooperative, healthy appearing, comfortable, no acute distress and well developed Orientation/consciousness: patient oriented x3 HENMT: Head: normal to inspection Eyes: General: appearance normal, both eyes and all related structures Resp: Effort & Inspection: normal respiratory effort and able to speak in complete sentences Auscultation: clear to auscultation bilaterally Cardio: Rate: regular rate Rhythm: regular rhythm Heart sounds: S1 normal heart sound present and S2 normal heart sound present Skin: General skin exam: normal color Neuro: General: patient oriented x3 Cognition (Neuro): normal cognition Speech: normal speech Extrem: Other: tenderness to right dorsal hand no swelling or brusing noted at this time Psych: Mental Status: mental status grossly normal Course Course Level of Care: Express Care Visit Vital Signs Vital signs: Vital Signs Temperature 97.9 F 08/25/25 12:34 Pulse Rate 72 08/25/25 12:34 Respiratory Rate 18 08/25/25 12:34 Blood Pressure 104/78 08/25/25 12:34 Pulse Oximetry 99 08/25/25 12:34 Oxygen Delivery Room Air 08/25/25 12:34 Temperature 97.9 F 08/25/25 12:34 Pulse Rate 72 08/25/25 12:34 Respiratory Rate 18 08/25/25 12:34 Blood Pressure 104/78 08/25/25 12:34 Pulse Oximetry 99 08/25/25 12:34 Oxygen Delivery Room Air 08/25/25 12:34 Procedures Orthopedic Splinting/Casting Injury #1: Splinting/Casting Date: 08/25/25 Side: right Upper Extremity Injury Location: hand Upper Extremity Immobilizer: volar splint and Dejuan wrap Splint: customized in ED (done by Tech reviewed by this AUDIO VISUAL SPECIALIST) Pre-Procedure Neuro Vascular Exam: normal Post-Procedure Neuro Vascular Exam: normal MDM MDM Narrative Medical decision making narrative: HPI is noted and differentials as below. Chip fracture noted of the right hand with an unclear donor site. Patient with tenderness to the site and pain with certain movements. We will splint today and have her follow-up with orthopedics. Assessment 1. Chip fracture of the right hand with unclear donor site. 2. Pain management and limitation of movement required. Plan - Apply a temporary splint to the right hand. Applied by Tech. CMS intact - Advise using Tylenol and ibuprofen for pain management. - Instruct on the signs of increased swelling or numbness indicating a need for emergency care. - Schedule follow-up with an department specialist in approximately two weeks. - Educate patient on monitoring finger capillary refill and the importance of avoiding excessive use of the right hand. Differential Diagnosis Differential Diagnosis: Differentials include but not limited to sprain, fracture, strain, bruise. Imaging Data Attestation: I personally reviewed and interpreted this imaging study as follows: Radiologist's impression: X-ray report reviewed chip fracture noted unknown donor site Discharge Plan Discharge Clinical Impression: Fracture, Hand pain, right Patient Disposition: Home Condition: Stable Instructions: Antibiotic Form Additional Instructions: please keep the splint on until you follow-up with Ortho and they give you further directions. Tylenol or ibuprofen as needed for pain or fever. Our on-call ortho is Dr. Cantrell today may follow-up with him he is in [place] or you may follow up with whom ever you wish. Please bring your disc with you. Patient Language: Setswana Prescriptions: No Action No Home Medications Follow-up/Referrals: Jeanie,Jo Deleon MD [Primary Care Provider] Epi Cantrell MD [Physician, Orthopedics] Quality NIHSS Nursing Documentation ED NIHSS nursing documentation: reviewed/agree
== END 2025-08-25 14:10 | disposition home or self-care (01) ==
PROVIDERS: Emergency Provider Nurse Practitioner Family; PCP Family Medicine
DX: S62.91XA Unspecified fracture of right hand, initial encounter for closed fracture (principal); W17.89XA Other fall from one level to another, initial encounter
CPT/HCPCS: 29125; 73110; 73130; 99214; G0463